=== PATIENT | male | born 1950 | race Caucasian/White ===

== ENCOUNTER 2017-08-21 10:45 | Day surgery (SDC) | payer OTHER, SELFPAY ==
[2017-08-21] VITALS (10 sets, daily range): BP systolic 101–151; BP diastolic 64–80; PULSE 47–54; RESP 11–17; TEMP 36.1–36.6; O2SAT 95–98; BMI 20.2
[2017-08-21] MEDS: SODIUM CHLORIDE 0.9% 1,000 ML 200 ML IV (11:21)
--- NOTE | 2017-08-21 11:40 | PM.HP.1 ---
History of Present Illness Date Patient Seen: 08/21/17 Time Patient Seen: 11:40 Chief complaint: [id number] SCREENING COLONOSCOPY Narrative: Very pleasant gentleman here for screening colonoscopy. He denies any problems or symptoms related to function of his GI tract reports that he needs colonoscopy as per the health maintenance program. His last colonoscopy was 2016 was Patient History Family & Social History Family History: Reviewed 08/21/17 by Adriana Wright MD Social History: household members none Meds Home Medications Medication Instructions Recorded Confirmed Type fluticasone 1 spray INTRANASAL Q DAY #16 gm 06/10/16 Rx pregabalin [Lyrica] 300 mg PO HS #90 cap 04/08/17 Rx aspirin #0 05/15/17 History evolocumab [Repatha Syringe] 140 mg SUB-Q Q2W 08/21/17 08/21/17 History Allergies Allergy/AdvReac Type Severity Reaction Status Date / Time Penicillins Allergy Unknown Rash Verified 08/21/17 11:18 oxycodone AdvReac Unknown INTOLERANCE Verified 08/21/17 11:18 TO PERCOCET Review of Systems Review of Systems All systems reviewed & are unremarkable except as noted in HPI and below Exam Vital Signs (past 8 hours): Vital Signs - 8 hr 08/21/17 11:12 Temperature 97.9 F Pulse Rate 54 L Respiratory Rate 16 Blood Pressure 151/80 H Pulse Oximetry 97 Pulse Oximetry 97 Oxygen Delivery Method Room Air Narrative Exam Narrative: Very pleasant well nourished, well developed gentleman in no obvious distress Lungs: Clear bilaterally Heart: Regular rate and rhythm, bradycardia Abdomen: Soft, scaphoid, active bowel sounds Extremities: Warm and well perfused, no edema Assessment & Plan Plan: Assessment/Plan Narrative: Very very pleasant and healthy gentleman here for screening colonoscopy we have reviewed the risks and benefits of the procedure the patient has elected to continue with the planned intervention.
--- NOTE | 2017-08-21 11:44 | P.HP_ITS ---
History of Present Illness Date Patient Seen: 08/21/17 Time Patient Seen: 11:40 Chief complaint: [id number] SCREENING COLONOSCOPY Narrative: Very pleasant gentleman here for screening colonoscopy. He denies any problems or symptoms related to function of his GI tract reports that he needs colonoscopy as per the health maintenance program. His last colonoscopy was 2016 was Patient History Family & Social History Family History: Reviewed 08/21/17 by Adriana Wright MD Social History: household members none Meds Home Medications Medication Instructions Recorded Confirmed Type fluticasone 1 spray INTRANASAL Q DAY #16 gm 06/10/16 Rx pregabalin [Lyrica] 300 mg PO HS #90 cap 04/08/17 Rx aspirin #0 05/15/17 History evolocumab [Repatha Syringe] 140 mg SUB-Q Q2W 08/21/17 08/21/17 History Allergies Allergy/AdvReac Type Severity Reaction Status Date / Time Penicillins Allergy Unknown Rash Verified 08/21/17 11:18 oxycodone AdvReac Unknown INTOLERANCE Verified 08/21/17 11:18 TO PERCOCET Review of Systems Review of Systems All systems reviewed & are unremarkable except as noted in HPI and below Exam Vital Signs (past 8 hours): Vital Signs - 8 hr 3 08/21/17 11:12 Temperature 97.9 F Pulse Rate 54 L Respiratory Rate 16 Blood Pressure 151/80 H Pulse Oximetry 97 Pulse Oximetry 97 Oxygen Delivery Method Room Air Narrative Exam Narrative: Very pleasant well nourished, well developed gentleman in no obvious distress Lungs: Clear bilaterally Heart: Regular rate and rhythm, bradycardia Abdomen: Soft, scaphoid, active bowel sounds Extremities: Warm and well perfused, no edema Assessment & Plan Plan: Assessment/Plan Narrative: Very very pleasant and healthy gentleman here for screening colonoscopy we have reviewed the risks and benefits of the procedure the patient has elected to continue with the planned intervention.
[2017-08-21] MEDS: MIDAZOLAM 5 MG/5 ML VIAL IV (11:58)
[2017-08-21] MEDS: fentaNYL 250 MCG/5 ML INJ IV (11:58)
--- NOTE | 2017-08-21 12:07 | PM.OP.1 ---
Operative Date/Time/Diagnoses - Date of procedure: 08/21/17 Time of procedure: 12:07 Pre-op diagnosis: Screening Post-op diagnosis: same Procedure & Clinicians Procedure: Colonoscopy to the cecum Same procedure as scheduled: Yes Indications: Last colonoscopy 10 years ago Surgeon: Adriana Wright Click Yes if Unassisted: Yes Anesthesia Type: Sedation (Versed 5 mg; fentanyl 150 mcg) Operative Notes Findings: 1. Excellent prep 2. No polyps or mass lesions 3. No AV malformations 4. Very very minimal diverticulosis limited to the sigmoid region 5. Who grade 1 internal hemorrhoids with no evidence of prolapse Closure Type: not applicable Specimen(s): none sent Procedure in detail: After obtaining informed consent, the patient was brought to the GI suite and placed in the left lateral decubitus position on the examination table. After placement of appropriate monitors, the patient was given incremental doses of Versed and Fentanyl until an appropriate level of sedation was achieved. A time out was held per SCOAP protocol. A digital rectal examination was performed and did not reveal any masses or obstructing lesions. The colonoscope was gently passed into the patient's anus and the entire colon navigated to the level of the cecum with minimal difficulty. Once in the cecum, the scope was withdrawn being sure to go before and beyond all mucosal folds and prominences and get an excellent examination. The findings are noted above. At the level of the rectal vault, the scope was retroflexed and the internal anal canal was examined. The scope was straightened and air aspirated from the colon. The instrument was removed from the patient's body and the procedure was concluded. The patient was allowed to awaken from sedation without difficulty and taken to the post-anesthesia care unit in good condition. Total sedation time 17 min Total withdrawal time 9 min Complications: none Condition: stable Disposition: PACU Plan for aftercare: 1. Discharge to home 2. Plan for next colonoscopy in 10 years or as clinically indicated
== END 2017-08-21 13:22 | disposition home or self-care (01) ==
PROVIDERS: PCP Internal Medicine; Visit Provider Surgery
PROC: 0DJD8ZZ Inspection of Lower Intestinal Tract, Via Natural or Artificial Opening Endoscopic (ICD-10-PCS; CPT 45378; principal; 2017-08-21 11:45)
DX: Z12.11 Encounter for screening for malignant neoplasm of colon (principal); K57.30 Diverticulosis of large intestine without perforation or abscess without bleeding; K64.0 First degree hemorrhoids
CPT/HCPCS: 45378; 99152; J2250; J3010

== ENCOUNTER → 2017-08-26 08:13 | Outpatient (CLI) | payer OTHER, SELFPAY ==
--- NOTE | 2017-08-26 | DI.ECHO.S_ITS ---
[facility] + [facility] +---------+ : : [address] : : : : [place], : : : : [place] [id number] : : : : Phone: [phone] Echocardiogram Report + + :Name: JESSICA NICOLAS Study Date: 08/26/2017 Height: 71 in : :[facility] Weight: 150 lb: : Gender: Male BSA: 1.9 m2 : :: 1950 Age: 67 yrs : : Performed By: [facility] : :Referring: ENMANUEL HOFFMAN : + + Interpretation Summary Procedure: A two-dimensional transthoracic echocardiogram with color flow and Doppler was performed. The study quality was technically good. Comparison is made with the echocardiogram of 04/04/15. The patient was in normal sinus rhythm during the exam. The patient had occasional PACs during the exam. Left Ventricle: The left ventricle is normal in size. Left ventricular wall thickness is at the upper limits of normal. The ejection fraction is estimated to be 60-65%. There are no focal wall motion abnormalities. Right Ventricle: The right ventricle is mildly dilated. The right ventricular systolic function is normal. Atria: Both atria are moderately dilated. The interatrial septum is intact with no evidence for an atrial septal defect. Mitral Valve: There is mild to moderate mitral regurgitation. Aortic Valve: The aortic valve is normal in structure and function. No aortic regurgitation is present. Tricuspid Valve: The tricuspid valve is normal in structure and function. Pulmonic Valve: The pulmonic valve is normal in structure and function. There is trace pulmonic regurgitation. Great Vessels: The aortic root is normal size. The dimensions of the ascending aorta are normal. The pulmonary artery is normal size. Pericardium/ Pleura There is no pericardial effusion. There is no pleural effusion. MMode/2D Measurements & Calculations LVIDd: 4.3 cm Ao root diam: 3.8 cm LVIDs: 2.9 cm Aortic Jxn: 3.1 cm IVSd: 1.1 cm asc Aorta Diam: 4.3 cm LVPWd: 0.92 cm Ao Arch Diam (Prox Trans): 2.6 cm LV bo. diameter/BSA (cm/m^2): 2.3 LV sys. diameter/BSA (cm/m^2): 1.5 FS: 33.7 % EPSS: 0.24 cm LA dimension: 3.6 cm RA long axis: 5.8 cm LA A2 area: 27.9 cm2 RA area: 24.8 cm2 LA A4 area: 20.3 cm2 RA vol: 89.7 ml LA length (vol): 5.6 cm RA : 48.1 ml/m2 LA vol: 86.0 ml LA vol index: 46.1 ml/m2 RVD1 (basal): 4.9 cm IVC diam: 1.8 cm RVD2 (mid): 4.0 cm Doppler Measurements & Calculations Ao V2 max: 120.9 cm/sec MV E max chris: 51.5 cm/sec Ao V2 mean: 92.5 cm/sec MV A max chris: 39.1 cm/sec Ao V2 VTI: 32.8 cm MV E/A: 1.3 Ao max P.8 mmHg Med Peak E' Chris: 4.7 cm/sec Ao mean P.7 mmHg E/E' med: 10.8 MV dec time: 0.28 sec TR max chris: 222.9 cm/sec TR max P.9 mmHg PA V2 max: 73.2 cm/sec Pulm A Revs Chris: 19.5 cm/sec PA V2 mean: 50.5 cm/sec PA mean P.1 mmHg PA pr(Accel): 19.1 mmHg PA Accel Time: 0.13 sec Reading Physician:SADA
== END ==
PROVIDERS: PCP Internal Medicine; Visit Provider Internal Medicine Cardiovascular Disease
DX: I77.819 Aortic ectasia, unspecified site (principal)
CPT/HCPCS: 93306

== ENCOUNTER → 2017-12-15 13:00 | Outpatient (CLI) | payer OTHER, SELFPAY | PROVIDERS: PCP Internal Medicine | DX: Z23 Encounter for immunization (principal) | CPT/HCPCS: 90471; 90662 ==

== ENCOUNTER → 2018-04-13 11:22 | Outpatient (CLI) | payer OTHER, SELFPAY ==
[2018-04-13 12:30] LABS: Alanine Aminotransferase 24 IU/L (21-72); Albumin 4.3 g/dL (3.5-5.0); Albumin Globulin Ratio 1.4 (1.0-2.8); Alkaline Phosphatase 68 U/L (38-126); Aspartate Aminotransferase 33 IU/L (17-59); Blood Urea Nitrogen 22 mg/dL (9-20); Calcium 9.3 mg/dL (8.4-10.2); Carbon Dioxide 27 mmol/L (22-32); Chloride 102 mmol/L (98-107); Cholesterol 153 mg/dL (140-199); Estimated Glomerular Filt Rate > 60.0 mL/min (>60); Globulin 3.1 g/dL (1.7-4.1); Glucose 92 mg/dL (80-110); HDL Cholesterol 58 mg/dL (40-60); HEMOLYSIS 17 (0-50); LDL Cholesterol Calculated 71 mg/dL (<100); Potassium 4.2 mmol/L (3.4-5.1); Sodium 139 mmol/L (137-145); Total Protein 7.4 g/dL (6.3-8.2); Triglycerides 122 mg/dL (35-150)
[2018-04-13 12:38] LABS: Add Manual Diff / Slide Review NO; Basophils Absolute Auto 0 /uL (0-100); Basophils Percent Auto 0.8 % (0-2); Eosinophils Absolute Auto 100 /uL (0-450); Eosinophils Percent Auto 0.9 % (2-4); Hematocrit 46.5 % (41-53); Hemoglobin 15.7 g/dL (13.5-17.5); Lymphocytes Absolute Auto 1900 /uL (1100-4500); Lymphocytes Percent Auto 29.2 % (25-40); Mean Corpuscular HGB Conc 33.7 % (30-36); Mean Corpuscular Hemoglobin 32.1 PG (26-34); Mean Corpuscular Volume 95.3 fL (80-100); Monocytes Absolute Auto 500 /uL (0-900); Monocytes Percent Auto 8.1 % (3-14); Neutrophils Absolute Auto 4000 /uL (1500-7000); Platelet Count 202 X10^3/uL (150-400); Red Blood Cell Count 4.88 X10^6/uL (4.5-5.9); Red Cell Distribution Width 13.6 % (11.6-14.8); White Blood Cell Count 6.6 X10^3/uL (4.5-11.0)
[2018-04-13 12:58] LABS: Prostate Specific Antigen Scrn 0.744 ng/mL (0.1-4.0); TSH w/ Reflex to FT4 1.41 uIU/mL (0.47-4.68)
== END ==
PROVIDERS: PCP Internal Medicine; Visit Provider Internal Medicine
DX: I45.89 Other specified conduction disorders (principal); I71.2 Thoracic aortic aneurysm, without rupture; R06.00 Dyspnea, unspecified; Z12.5 Encounter for screening for malignant neoplasm of prostate; Z13.6 Encounter for screening for cardiovascular disorders
CPT/HCPCS: 36415; 80053; 80061; 84443; 85025; G0103

== ENCOUNTER → 2018-12-29 12:45 | Outpatient (CLI) | payer OTHER, SELFPAY | PROVIDERS: PCP Internal Medicine | DX: Z23 Encounter for immunization (principal) | CPT/HCPCS: 90471; 90662 ==

== ENCOUNTER → 2019-04-26 08:42 | Outpatient (CLI) | payer OTHER, SELFPAY ==
[2019-04-26 09:36] LABS: Influenza A - CEPHEID Flu A POSITIVE (NEGATIVE); Influenza B - CEPHEID Flu B NEGATIVE (NEGATIVE)
== END ==
PROVIDERS: PCP Internal Medicine; Visit Provider Nurse Practitioner
DX: R05 Cough (principal); R50.9 Fever, unspecified; Z20.828 Contact with and (suspected) exposure to other viral communicable diseases
CPT/HCPCS: 87502

== ENCOUNTER → 2019-06-14 09:52 | Outpatient (CLI) | payer OTHER, SELFPAY ==
--- NOTE | 2019-06-14 09:55 | DI.RAD.S_ITS ---
PROCEDURE: XR HAND RT MIN 3V INDICATIONS: Swelling in right hand. TECHNIQUE: 3 views of the hand(s) acquired. COMPARISON: None. FINDINGS: Bones: No fractures but there is a finding of strongly suspected volar dislocation of the base of the second proximal phalanx from the second metacarpal head, as potential etiology for the swelling noted. Carpal bones are normally aligned. No suspicious bony lesions. Soft tissues: No suspicious soft tissue calcifications. 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 Dictated by: Harris Warner M.D. on 06/14/2019 at 10:22 Approved by: Harris Warner M.D. on 06/14/2019 at 10:25
== END ==
PROVIDERS: PCP Internal Medicine; Referring Provider Internal Medicine; Visit Provider Internal Medicine
DX: S69.91XA Unspecified injury of right wrist, hand and finger(s), initial encounter (principal); M79.89 Other specified soft tissue disorders; X58.XXXA Exposure to other specified factors, initial encounter
CPT/HCPCS: 73130

== ENCOUNTER → 2019-09-06 08:04 | Outpatient (CLI) | payer OTHER, SELFPAY ==
[2019-09-06 09:46] LABS: Add Manual Diff / Slide Review NO; Basophils Absolute Auto 0 /uL (0-100); Basophils Percent Auto 0.7 % (0-2); Eosinophils Absolute Auto 100 /uL (0-450); Eosinophils Percent Auto 1.6 % (2-4); Hematocrit 42.9 % (41-53); Hemoglobin 14.6 g/dL (13.5-17.5); Lymphocytes Absolute Auto 1700 /uL (1100-4500); Mean Corpuscular Hemoglobin 32.2 PG (26-34); Mean Corpuscular Volume 94.7 fL (80-100); Monocytes Absolute Auto 500 /uL (0-900); Monocytes Percent Auto 9.2 % (3-14); Neutrophils Absolute Auto 3400 /uL (1500-7000); Neutrophils Percent Auto 58.5 % (50-75); Platelet Count 176 X10^3/uL (150-400); Red Blood Cell Count 4.52 X10^6/uL (4.5-5.9); Red Cell Distribution Width 13.4 % (11.6-14.8); White Blood Cell Count 5.8 X10^3/uL (4.5-11.0)
[2019-09-06 10:30] LABS: Alanine Aminotransferase 14 IU/L (<50); Albumin 3.6 g/dL (3.5-5.0); Albumin Globulin Ratio 1.3 (1.0-2.8); Alkaline Phosphatase 62 U/L (38-126); Aspartate Aminotransferase 29 IU/L (17-59); BUN Creatinine Ratio 23.4 (6-22); Bilirubin Total 0.8 mg/dL (0.2-1.3); Blood Urea Nitrogen 22 mg/dL (9-20); Calcium 9.4 mg/dL (8.4-10.2); Carbon Dioxide 23 mmol/L (22-32); Chloride 108 mmol/L (98-107); Cholesterol 166 mg/dL (140-199); Estimated Glomerular Filt Rate > 60.0 mL/min (>60); Globulin 2.8 g/dL (1.7-4.1); Glucose 90 mg/dL (80-110); HDL Cholesterol 54 mg/dL (40-60); HEMOLYSIS < 15 (0-50); LDL Cholesterol Calculated 92 mg/dL (<100); Potassium 4.4 mmol/L (3.4-5.1); Sodium 138 mmol/L (137-145); Total Protein 6.4 g/dL (6.3-8.2); Triglycerides 100 mg/dL (35-150)
[2019-09-06 10:48] LABS: Prostate Specific Antigen Scrn 0.612 ng/mL (0.1-4.0)
== END ==
PROVIDERS: PCP Internal Medicine; Referring Provider Internal Medicine; Visit Provider Internal Medicine
DX: Z13.1 Encounter for screening for diabetes mellitus (principal); Z13.6 Encounter for screening for cardiovascular disorders; Z12.5 Encounter for screening for malignant neoplasm of prostate; E78.5 Hyperlipidemia, unspecified; F98.8 Other specified behavioral and emotional disorders with onset usually occurring in childhood and adolescence
CPT/HCPCS: 36415; 80053; 80061; 85025; G0103

== ENCOUNTER → 2019-10-06 06:55 | Outpatient (CLI) | payer OTHER, SELFPAY ==
--- NOTE | 2019-10-06 | DI.ECHO.S_ITS ---
[facility]---------+ [facility] +---------+ : : [address] [place] [address] : : : : [id number] : : : : Phone: [phone]+ Echocardiogram Report + + :Name: JESSICA NICOLAS Study Date: 10/06/2019 Height: 71 in : :[facility] Weight: 145 lb : : Gender: Male BSA: 1.8 m2 : :: 1950 Age: 69 yrs BP: 118/68 mmHg: :Reason For Study: ASCENDING AORTA DILITATION : :Ordering Physician: JAIRO, : :HUY Performed By: Luzmaria Haines : :Referring: HUY GILL : + + Interpretation Summary The left ventricle is normal in size and wall thickness. The left ventricular ejection fraction is normal. There are no focal wall motion abnormalities. The right ventricle is normal in size and function. A highly mobile, filamentous echodensity is noted, attached to the ventricular aspect of the anterior mitral valve leaflet. 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 The anterior leaflet motion is preserved and only trivial mitral regurgitation is present. Review of prior echos shows this was present on the last echo as well. The ascending aorta is mildly enlarged.There has been no significant change since the previous study. Overall there is no significant change compared to the prior echocardiogram. Procedure: A two-dimensional transthoracic echocardiogram with color flow and Doppler was performed. The study quality was technically adequate. There is no prior echocardiogram noted for this patient. The patient was in sinus bradycardia with heart rates between 47-50 bpm during the exam. The patient had occasional PACs during the exam. Left Ventricle: The left ventricle is normal in size and wall thickness. The ejection fraction is estimated to be 60-65%. The left ventricular ejection fraction is normal. There are no focal wall motion abnormalities. Diastolic function could not be accurately assessed due to contradictory data. Right Ventricle: The right ventricle is normal in size and function. Atria: The left atrium is mildly dilated. Right atrial size is normal. There is no Doppler evidence for an interatrial shunt. Mitral Valve: The mitral valve leaflets appear to open well. A highly mobile, filamentous echodensity is noted, attached to the ventricular aspect of the anterior mitral valve leaflet. 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 The anterior leaflet motion is preserved and only trivial mitral regurgitation is present. Review of prior echos shows this was present on the last echo as well. There is trace mitral regurgitation. Aortic Valve: The aortic valve is trileaflet. The aortic valve opens well. There is no aortic valve stenosis. No aortic regurgitation is present. Tricuspid Valve: The tricuspid valve is normal in structure and function. The right ventricular systolic pressure is estimated to be at least 19 mmHg based on an estimated right atrial pressure of 3 mm Hg. There is mild tricuspid regurgitation. Pulmonic Valve: The pulmonic valve leaflets are thin and pliable; valve motion is normal. There is mild pulmonic regurgitation. Great Vessels: The aortic root is borderline dilated. The ascending aorta is mildly enlarged. There has been no significant change since the previous study. The IVC is of normal diameter and collapses greater than 50% with a sniff. This suggests a low right atrial pressure of 3 mm Hg. Pericardium/ Pleura There is no pericardial effusion. There is no pleural effusion. MMode/2D Measurements & Calculations LVIDd: 4.9 cm LVOT diam: 2.1 cm LVIDs: 3.1 cm Ao root diam: 3.8 cm FS: 37.1 % asc Aorta Diam: 4.1 cm EPSS: 0.27 cm Ao Arch Diam (Prox Trans): 2.5 cm IVSd: 0.99 cm LVPWd: 0.87 cm LV bo. diameter/BSA (cm/m^2): 2.6 LV sys. diameter/BSA (cm/m^2): 1.7 LA A2 area: 24.3 cm2 RA long axis: 5.9 cm LA A4 area: 20.0 cm2 RA area: 18.0 cm2 LA length (vol): 5.5 cm RA vol: 46.6 ml LA vol: 74.2 ml RA : 25.4 ml/m2 LA vol index: 40.3 ml/m2 IVC diam: 1.3 cm RVD1 (basal): 3.8 cm TAPSE: 2.2 cm Doppler Measurements & Calculations Ao V2 max: 117.2 cm/sec LVOT Max Chris: 102.6 cm/sec Ao V2 mean: 79.5 cm/sec LV V1 max P.2 mmHg Ao max P.5 mmHg LV V1 VTI: 22.9 cm Ao mean P.7 mmHg GELA(I,D): 3.0 cm2 Ao V2 VTI: 26.3 cm GELA(V,D): 3.0 cm2 sev ratio: 0.87 GELA indexed to BSA (cm^2/m^2): 1.6 MV E max chris: 57.6 cm/sec TR max chris: 220.7 cm/sec MV A max chris: 39.4 cm/sec TR max P.9 mmHg MV E/A: 1.5 PA V2 max: 71.4 cm/sec Med Peak E' Chris: 5.1 cm/sec PA V2 mean: 45.3 cm/sec E/E' med: 11.3 PA mean P.98 mmHg Lat Peak E' Chris: 7.2 cm/sec PA pr(Accel): 17.3 mmHg E/E' lat: 8.0 E/e' average: 9.7 MV dec time: 0.25 sec SV(LVOT): 77.7 ml Electronically signed by: Huy Gill M.D. on Reading Physician:10/06/2019 10:08 AM
== END ==
PROVIDERS: PCP Internal Medicine; Referring Provider Hospitalist; Visit Provider Hospitalist
DX: I07.1 Rheumatic tricuspid insufficiency (principal); I37.1 Nonrheumatic pulmonary valve insufficiency; I77.810 Thoracic aortic ectasia
CPT/HCPCS: 93306

== ENCOUNTER → 2019-12-08 00:06 | Outpatient (CLI) | payer OTHER, SELFPAY | PROVIDERS: PCP Internal Medicine; Referring Provider Internal Medicine; Visit Provider Internal Medicine | DX: Z23 Encounter for immunization (principal) | CPT/HCPCS: 90471; 90662 ==

== ENCOUNTER → 2020-03-24 12:58 | Outpatient (CLI) | payer MEDICARE, SELFPAY ==
[2020-03-24] MEDS: COVID-19 VACC(MODERNA-1)/PF 100 MCG/0.5 ML VIAL IM (13:07)
== END ==
PROVIDERS: PCP Internal Medicine; Visit Provider Internal Medicine
DX: Z23 Encounter for immunization (principal)
CPT/HCPCS: 0011A; 91301

== ENCOUNTER → 2020-04-21 12:52 | Outpatient (CLI) | payer MEDICARE, OTHER, SELFPAY ==
[2020-04-21] MEDS: COVID-19 VACC #2, MRNA(MOD) 100 MCG/0.5 ML VIAL IM (13:00)
== END ==
PROVIDERS: PCP Internal Medicine; Visit Provider Internal Medicine
DX: Z23 Encounter for immunization (principal)
CPT/HCPCS: 0012A; 91301

== ENCOUNTER → 2020-05-09 16:56 | Outpatient (CLI) | payer MEDICARE, OTHER, SELFPAY ==
[2020-05-09 19:01] LABS: Alanine Aminotransferase 12 IU/L (<50); Albumin 4.2 g/dL (3.5-5.0); Albumin Globulin Ratio 1.4 (1.0-2.8); Alkaline Phosphatase 64 U/L (38-126); Aspartate Aminotransferase 29 IU/L (17-59); BUN Creatinine Ratio 21.2 (6-22); Bilirubin Total 0.6 mg/dL (0.2-1.3); Blood Urea Nitrogen 22 mg/dL (9-20); Calcium 9.3 mg/dL (8.4-10.2); Carbon Dioxide 29 mmol/L (22-32); Chloride 104 mmol/L (98-107); Estimated Glomerular Filt Rate > 60.0 mL/min (>60); Globulin 2.9 g/dL (1.7-4.1); Glucose 84 mg/dL (80-110); HEMOLYSIS < 15 (0-50); Potassium 4.3 mmol/L (3.4-5.1); Sodium 136 mmol/L (137-145); Total Protein 7.1 g/dL (6.3-8.2)
[2020-05-09 19:32] LABS: TSH w/ Reflex to FT4 2.16 uIU/mL (0.47-4.68)
== END ==
PROVIDERS: PCP Internal Medicine; Referring Provider Internal Medicine; Visit Provider Internal Medicine
DX: I10 Essential (primary) hypertension (principal)
CPT/HCPCS: 36415; 80053; 84443

== ENCOUNTER → 2020-05-17 10:40 | Outpatient (CLI) | payer MEDICARE, OTHER, SELFPAY ==
--- NOTE | 2020-05-17 10:42 | DI.RAD.S_ITS ---
PROCEDURE: XR FOOT LT MIN 3V INDICATIONS: Left foot 3rd metatarsal pain TECHNIQUE: 3 views of the foot were acquired. COMPARISON: [facility], CR, FOOT 3V LEFT, 07/07/2014, 17:19. FINDINGS: Bones: There is mild pes planus. Calcaneal pitch angle measures 16 degrees. Hammertoe deformity involving 2nd toe is seen. Mild osteoarthritic changes at 1st MTP joint and interphalangeal joints are seen. No fracture or dislocation. No suspicious bony lesion. Soft tissues: No tibiotalar joint effusion. Achilles tendon appears normal. IMPRESSION: Mild pes planus. Mild 2nd toe hammertoe deformity. 1st MTP joint osteoarthritis. Old healed mid 3rd metatarsal shaft fracture is again seen. No acute fracture or dislocation. Dictated by: Codey Pisano M.D. on 05/17/2020 at 13:28 Approved by: Codey Pisano M.D. on 05/17/2020 at 13:34
== END ==
PROVIDERS: PCP Internal Medicine; Referring Provider Internal Medicine; Visit Provider Internal Medicine
DX: M79.672 Pain in left foot (principal); M20.42 Other hammer toe(s) (acquired), left foot; M19.072 Primary osteoarthritis, left ankle and foot
CPT/HCPCS: 73630

== ENCOUNTER → 2020-05-24 11:04 | Outpatient (CLI) | payer MEDICARE, OTHER, SELFPAY ==
[2020-05-24 12:24] LABS: Cholesterol 203 mg/dL (140-199); HDL Cholesterol 56 mg/dL (40-60); LDL Cholesterol Calculated 116 mg/dL (<100); Triglycerides 154 mg/dL (35-150)
== END ==
PROVIDERS: PCP Internal Medicine; Referring Provider Internal Medicine Cardiovascular Disease; Visit Provider Internal Medicine Cardiovascular Disease
DX: I25.10 Atherosclerotic heart disease of native coronary artery without angina pectoris (principal)
CPT/HCPCS: 36415; 80061

== ENCOUNTER → 2020-09-28 08:19 | Outpatient (CLI) | payer MEDICARE, OTHER, SELFPAY ==
[2020-09-28 09:12] LABS: Alanine Aminotransferase 13 IU/L (<50); Albumin 3.6 g/dL (3.5-5.0); Albumin Globulin Ratio 1.2 (1.0-2.8); Alkaline Phosphatase 66 U/L (38-126); Aspartate Aminotransferase 30 IU/L (17-59); BUN Creatinine Ratio 18.4 (6-22); Bilirubin Total 0.6 mg/dL (0.2-1.3); Blood Urea Nitrogen 19 mg/dL (9-20); Calcium 9.2 mg/dL (8.4-10.2); Carbon Dioxide 26 mmol/L (22-32); Chloride 108 mmol/L (98-107); Cholesterol 138 mg/dL (140-199); Estimated Glomerular Filt Rate > 60.0 mL/min (>60); Globulin 2.9 g/dL (1.7-4.1); Glucose 98 mg/dL (80-110); HDL Cholesterol 60 mg/dL (40-60); HEMOLYSIS < 15 (0-50); LDL Cholesterol Calculated 64 mg/dL (<100); Potassium 4.7 mmol/L (3.4-5.1); Sodium 139 mmol/L (137-145); Total Protein 6.5 g/dL (6.3-8.2); Triglycerides 71 mg/dL (35-150)
[2020-09-28 09:42] LABS: Prostate Specific Antigen Scrn 0.621 ng/mL (0.1-4.0)
== END ==
PROVIDERS: PCP Internal Medicine; Referring Provider Internal Medicine; Visit Provider Internal Medicine
DX: I10 Essential (primary) hypertension (principal); Z12.5 Encounter for screening for malignant neoplasm of prostate; E78.5 Hyperlipidemia, unspecified; I25.10 Atherosclerotic heart disease of native coronary artery without angina pectoris
CPT/HCPCS: 36415; 80053; 80061; G0103

== ENCOUNTER → 2021-09-11 12:05 | Outpatient (CLI) | payer MEDICARE, OTHER, SELFPAY ==
--- NOTE | 2021-09-11 12:07 | DI.MRI.S_ITS ---
PROCEDURE: MR THORACIC SPINE WO CON INDICATIONS: thoracic back pain TECHNIQUE: Noncontrast sagittal T1 spine echo and T2 fast spin echo, sagittal STIR, and T2 fast spin echo through the thoracic spine. COMPARISON: [facility], , T-SPINE WITHOUT CONTRAST, 07/26/2015, 18:36. FINDINGS: Image quality: Excellent. Alignment and Curvature: Dextro thoracic curvature. Trace anterolisthesis of T1 on T2. Bone Marrow: Marrow is of normal overall signal. Again noted is a probable T9 hemangioma. No acute vertebral body compression fractures. Spinal Cord: Visualized spinal cord is normal in size and signal. Paraspinous Soft Tissues: No paravertebral masses. Miscellaneous: On axial images, central canal and foramina appear widely patent at all scanned levels. T1-T2: Mild left foraminal disc bulge without significant foraminal stenosis. T2-T3: Mild left foraminal disc bulge without significant foraminal stenosis. IMPRESSION: Mild scoliotic curvature. No canal stenosis or foraminal stenosis. Dictated by: Cr Barcenas M.D. on 09/11/2021 at 13:52 Approved by: Cr Barcenas M.D. on 09/11/2021 at 14:34
--- NOTE | 2021-09-11 12:07 | DI.RAD.S_ITS ---
PROCEDURE: XR CHEST 2V INDICATIONS: Cough TECHNIQUE: 2 views of the chest were acquired. COMPARISON: [facility], , CHEST 2 VIEW, 05/26/2017, 14:31. FINDINGS: Surgical changes and devices: None. Lungs and pleura: Lungs are clear. No pleural effusions or pneumothorax. Right lung calcified granuloma is stable. Mediastinum: Mediastinal contours are normal. Heart size is normal. Bones and chest wall: S shaped thoracolumbar spine scoliosis is stable. No suspicious bony abnormalities. Soft tissues appear unremarkable. IMPRESSION: No acute cardiopulmonary disease process. Dictated by: Angela Arambula MD, PhD on 09/11/2021 at 16:42 Approved by: Angela Arambula MD, PhD on 09/11/2021 at 16:42
== END ==
PROVIDERS: PCP Internal Medicine; Referring Provider Internal Medicine; Visit Provider Internal Medicine
DX: M54.6 Pain in thoracic spine (principal); R05.9 Cough, unspecified; M41.84 Other forms of scoliosis, thoracic region
CPT/HCPCS: 71046; 72146

== ENCOUNTER → 2021-10-01 08:50 | Outpatient (CLI) | payer MEDICARE, OTHER, SELFPAY ==
[2021-10-01 09:37] LABS: Alanine Aminotransferase 14 IU/L (<50); Albumin 3.8 g/dL (3.5-5.0); Albumin Globulin Ratio 1.3 (1.0-2.8); Alkaline Phosphatase 58 U/L (38-126); Aspartate Aminotransferase 27 IU/L (17-59); BUN Creatinine Ratio 20.8 (6-22); Bilirubin Total 1.3 mg/dL (0.2-1.3); Blood Urea Nitrogen 26 mg/dL (9-20); Carbon Dioxide 25 mmol/L (22-32); Chloride 103 mmol/L (98-107); Cholesterol 162 mg/dL (140-199); Estimated Glomerular Filt Rate > 60 mL/min (>60); Globulin 2.9 g/dL (1.7-4.1); Glucose 94 mg/dL (80-110); HDL Cholesterol 57 mg/dL (40-60); HEMOLYSIS < 15 (0-50); LDL Cholesterol Calculated 92 mg/dL (<100); Sodium 135 mmol/L (137-145); Total Protein 6.7 g/dL (6.3-8.2); Triglycerides 66 mg/dL (35-150)
[2021-10-01 10:06] LABS: Prostate Specific Antigen Scrn 1.17 ng/mL (0.1-4.0)
== END ==
PROVIDERS: PCP Internal Medicine; Referring Provider Internal Medicine; Visit Provider Internal Medicine
DX: E78.2 Mixed hyperlipidemia (principal); I10 Essential (primary) hypertension; Z12.5 Encounter for screening for malignant neoplasm of prostate
CPT/HCPCS: 36415; 80053; 80061; G0103

== ENCOUNTER → 2022-04-02 10:03 | Outpatient (CLI) | payer MEDICARE, OTHER, SELFPAY ==
[2022-04-02 11:20] LABS: BUN Creatinine Ratio 16.2 (6-22); Blood Urea Nitrogen 18 mg/dL (9-20); Calcium 8.9 mg/dL (8.4-10.2); Carbon Dioxide 27 mmol/L (22-32); Chloride 103 mmol/L (98-107); Estimated Glomerular Filt Rate > 60 mL/min (>60); Glucose 95 mg/dL (80-110); HEMOLYSIS < 15 (0-50); Potassium 4.5 mmol/L (3.4-5.1); Sodium 137 mmol/L (137-145)
== END ==
PROVIDERS: PCP Internal Medicine; Referring Provider Internal Medicine; Visit Provider Internal Medicine
DX: I10 Essential (primary) hypertension (principal)
CPT/HCPCS: 36415; 80048

== ENCOUNTER → 2022-04-15 14:48 | Outpatient (CLI) | payer MEDICARE, OTHER, SELFPAY ==
--- NOTE | 2022-04-15 14:49 | DI.ECHO.S_ITS ---
[facility]---------+ [facility] +---------+ : : [address] : [place] : : : : [id number] : : : : Phone: [phone] : [phone]+ Echocardiogram Report + + :Name: JESSICA NICOLAS Study Date: 04/15/2022 Height: 71 in : :[facility] ReadingLocation: Weight: 145 lb : : Gender: Male BSA: 1.8 m2 : :: 1950 Age: 72 yrs BP: 126/74 mmHg: :Reason For Study: \Dilated Ascending Aorta : :Ordering Physician: YAYA, : :LEROY Colon Performed By: Luzmaria Clay : :Referring: LEROY JAVIER : + + Interpretation Summary The left ventricle is normal in size and wall thickness. The ejection fraction is estimated to be 55-60%. There is mild mitral regurgitation. There is mild tricuspid regurgitation. The aortic arch is mildly enlarged. This is unchanged compared to the previous study. Procedure: A two-dimensional transthoracic echocardiogram with color flow and Doppler was performed. The study quality was technically good. The patient was in sinus bradycardia with heart rates between 47-53 bpm during the exam. Left Ventricle: The left ventricle is normal in size and wall thickness. The ejection fraction is estimated to be 55-60%. There are no focal wall motion abnormalities. Right Ventricle: The right ventricle is normal in size and function. Atria: The left atrial size is normal. Right atrial size is normal. There is no Doppler evidence for an interatrial shunt. Mitral Valve: The mitral valve leaflets appear to open well. There is mild mitral regurgitation. This is a slight increase compared to the previous study. Aortic Valve: The aortic valve is normal in structure and function. There is trace aortic regurgitation. Tricuspid Valve: The tricuspid valve is normal in structure and function. There is mild tricuspid regurgitation. Pulmonic Valve: The pulmonic valve leaflets are thin and pliable; valve motion is normal. There is a trace or physiologic amount of pulmonic regurgitation. Great Vessels: The aortic arch is mildly enlarged. This is unchanged compared to the previous study. Pericardium/ Pleura There is no pericardial effusion. There is no pleural effusion. MMode/2D Measurements & Calculations LVIDd: 4.0 cm LVOT diam: 2.0 cm LVIDs: 2.7 cm Ao root diam: 3.5 cm FS: 32.5 % asc Aorta Diam: 4.1 cm EPSS: 0.10 cm IVSd: 0.90 cm LVPWd: 0.90 cm LV bo. diameter/BSA (cm/m^2): 2.2 LV sys. diameter/BSA (cm/m^2): 1.5 LA dimension: 3.2 cm RA long axis: 5.7 cm LA A2 area: 16.2 cm2 RA area: 16.0 cm2 LA A4 area: 12.2 cm2 RA vol: 38.0 ml LA length (vol): 4.9 cm RA : 20.6 ml/m2 LA vol: 34.2 ml LA vol index: 18.6 ml/m2 RVD1 (basal): 3.2 cm LVLs ap4: 6.4 cm RVD2 (mid): 3.0 cm LVLd ap2: 8.0 cm RV Mid_phl: 3.0 cm LVLs ap2: 6.8 cm TAPSE_phl: 1.8 cm Doppler Measurements & Calculations Ao V2 max: 115.0 cm/sec LVOT Max Chris: 112.0 cm/sec Ao V2 mean: 73.4 cm/sec LV V1 max P.0 mmHg Ao max P.0 mmHg LV V1 VTI: 24.5 cm Ao mean P.0 mmHg GELA(I,D): 3.4 cm2 Ao V2 VTI: 22.9 cm GELA(V,D): 3.1 cm2 sev ratio: 1.1 GELA indexed to BSA (cm^2/m^2): 1.8 MV E max chris: 53.3 cm/sec TR max chris: 195.5 cm/sec MV A max chris: 69.7 cm/sec TR max P.5 mmHg MV E/A: 0.76 PA V2 max: 90.5 cm/sec Med Peak E' Chris: 4.7 cm/sec PA V2 mean: 61.5 cm/sec E/E' med: 11.2 PA mean P.0 mmHg Lat Peak E' Chris: 6.5 cm/sec E/E' lat: 8.2 E/e' average: 9.7 MV dec time: 0.24 sec MVA(VTI): 3.5 cm2 MV V2 mean: 31.6 cm/sec SV(LVOT): 77.0 ml MV mean P.0 mmHg MV V2 VTI: 22.1 cm AV VR_phl: 0.97 MV P1/2t-pr_phl: 70.0 msec GELA(VTI)/BSA_phl: 1.8 Electronically signed by: Adwoa Jamison on Reading Physician:04/17/2022 12:38 PM
== END ==
PROVIDERS: PCP Internal Medicine; Referring Provider Internal Medicine; Visit Provider Internal Medicine
DX: I71.21 Aneurysm of the ascending aorta, without rupture (principal); I08.1 Rheumatic disorders of both mitral and tricuspid valves; I77.89 Other specified disorders of arteries and arterioles
CPT/HCPCS: 93306

== ENCOUNTER → 2022-06-10 09:04 | Outpatient (CLI) | payer MEDICARE, OTHER, SELFPAY ==
[2022-07-01 11:52] LABS: Percent Free Testosterone 0.95 % (1.50-4.20); Testosterone Free 7.74 ng/dL (5.00-21.00)
== END ==
PROVIDERS: PCP Internal Medicine; Referring Provider Internal Medicine; Visit Provider Internal Medicine
DX: M62.84 Sarcopenia (principal)
CPT/HCPCS: 36415; 84402; 84403

== ENCOUNTER → 2022-07-11 08:50 | Outpatient (CLI) | payer MEDICARE, OTHER, SELFPAY ==
--- NOTE | 2022-07-11 08:51 | DI.RAD.S_ITS ---
PROCEDURE: XR THORACIC SPINE 3V INDICATIONS: THORACIC BACK PAIN TECHNIQUE: 3 views of the thoracic spine were acquired. COMPARISON: MR, MR THORACIC SPINE WO CON, 09/11/2021, 12:13. [facility], CR, XR CHEST 2V, 09/11/2021, 12:02. FINDINGS: Bones: No fractures or dislocations. No suspicious bony lesions. 12 pairs of ribs are noted, and appear intact where visualized. Mild S-shaped scoliosis. Mild multilevel disc height loss with endplate sclerosis and mild spurring, most notably involving the cervical spine Soft tissues: No paravertebral stripe thickening. No change in calcified right lower lobe granuloma. IMPRESSION: 1. Mild S-shaped scoliosis and multilevel disc degeneration, most notably involving the cervical spine. Dictated by: Timo RICHARDSON Interpreted: Li Chopra MD on 07/11/2022 at 9:14 Transcribed by: TESSA on 07/11/2022 at 9:17 Approved by: Li Chopra M.D. on 07/11/2022 at 16:56
== END ==
PROVIDERS: PCP Internal Medicine; Referring Provider Anesthesiology; Visit Provider Anesthesiology
DX: M51.34 Other intervertebral disc degeneration, thoracic region (principal); M50.30 Other cervical disc degeneration, unspecified cervical region; M41.9 Scoliosis, unspecified; M54.9 Dorsalgia, unspecified; G89.29 Other chronic pain
CPT/HCPCS: 72072

== ENCOUNTER → 2022-08-17 09:47 | Outpatient (CLI) | payer MEDICARE, OTHER, SELFPAY ==
[2022-08-17 13:05] LABS: Cholesterol 131 mg/dL (140-199); HDL Cholesterol 69 mg/dL (40-60); LDL Cholesterol Calculated 45 mg/dL (<100); Triglycerides 84 mg/dL (35-150)
== END ==
PROVIDERS: PCP Internal Medicine; Referring Provider Internal Medicine Cardiovascular Disease; Visit Provider Internal Medicine Cardiovascular Disease
DX: E78.5 Hyperlipidemia, unspecified (principal)
CPT/HCPCS: 36415; 80061

== ENCOUNTER → 2022-08-21 15:49 | Outpatient (CLI) | payer MEDICARE, OTHER, SELFPAY ==
--- NOTE | 2022-08-21 | DI.US.S_ITS ---
PROCEDURE: US CAROTID DOPPLER BI INDICATIONS: Mixed hyperlipidemia TECHNIQUE: Color and pulse Doppler interrogation was performed of both carotid systems, with image documentation and velocity measurements. COMPARISON: None. FINDINGS: Stenosis calculations are based on SRU (Society of Radiologists in Ultrasound) criteria. Right side: Brachial blood pressure: 97/55 mm Hg. Common carotid artery peak systolic velocity: 108 cm/sec. Internal carotid artery peak systolic velocity: 373 cm/sec. Internal carotid artery end diastolic velocity: 138 cm/sec. External carotid artery peak systolic velocity: 106 cm/sec. ICA/CCA peak systolic ratio: 3.5 . Keller scale imaging description: Moderate calcific plaque at the bifurcation Percent internal carotid artery stenosis: 70% to near occlusion . Vertebral artery: Flow direction is antegrade. Left side: Brachial blood pressure: 92/33 mm Hg. Common carotid artery peak systolic velocity: 117 cm/sec. Internal carotid artery peak systolic velocity: 128 cm/sec. Internal carotid artery end diastolic velocity: 48 cm/sec. External carotid artery peak systolic velocity: 161 cm/sec. ICA/CCA peak systolic ratio: 1.1 . Keller scale imaging description: Moderate calcific plaque at the bifurcation Percent internal carotid artery stenosis: 50-69% . Vertebral artery: Flow direction is antegrade. IMPRESSION: 1. 70% stenosis to near occlusion of right internal carotid artery. 2. 50-69% left internal carotid artery stenosis. 3. Antegrade vertebral artery flow bilaterally. Dictated by: Leah Erwin M.D. on 08/22/2022 at 10:29 Approved by: Leah Erwin M.D. on 08/22/2022 at 10:31
== END ==
PROVIDERS: PCP Internal Medicine; Referring Provider Nurse Practitioner; Visit Provider Nurse Practitioner
DX: I65.23 Occlusion and stenosis of bilateral carotid arteries (principal); E78.2 Mixed hyperlipidemia
CPT/HCPCS: 93880

== ENCOUNTER → 2022-10-26 09:52 | Outpatient (CLI) | payer MEDICARE, OTHER, SELFPAY ==
--- NOTE | 2022-10-26 09:53 | DI.RAD.S_ITS ---
PROCEDURE: XR CHEST 2V INDICATIONS: Persistent cough x3 months TECHNIQUE: 2 views of the chest were acquired. COMPARISON: [facility], CR, XR CHEST 2V, 09/11/2021, 12:02. FINDINGS: Surgical changes and devices: None. Lungs and pleura: Lungs are clear. No pleural effusions or pneumothorax. Calcified right lower lobe granuloma, stable Mediastinum: Mediastinal contours are normal. Heart size is normal. Bones and chest wall: No suspicious bony abnormalities. Soft tissues appear unremarkable. S shaped thoracolumbar scoliosis IMPRESSION: No acute cardiopulmonary findings Approved by: Alexander Conde M.D. on 10/26/2022 at 11:50
== END ==
PROVIDERS: PCP Internal Medicine; Referring Provider Internal Medicine; Visit Provider Internal Medicine
DX: R05.9 Cough, unspecified (principal)
CPT/HCPCS: 71046

== ENCOUNTER → 2023-02-17 08:07 | Outpatient (CLI) | payer MEDICARE, OTHER, SELFPAY ==
[2023-02-17 09:21] LABS: BUN Creatinine Ratio 18.9 (6-22); Blood Urea Nitrogen 23 mg/dL (9-20); Calcium 9.5 mg/dL (8.4-10.2); Carbon Dioxide 27 mmol/L (22-32); Chloride 106 mmol/L (98-107); Cholesterol 128 mg/dL (140-199); Estimated Glomerular Filt Rate > 60 mL/min (>60); Glucose 96 mg/dL (80-110); HDL Cholesterol 54 mg/dL (40-60); HEMOLYSIS < 15 (0-50); LDL Cholesterol Calculated 62 mg/dL (<100); Potassium 4.6 mmol/L (3.4-5.1); Sodium 137 mmol/L (137-145); Triglycerides 62 mg/dL (35-150)
== END ==
PROVIDERS: PCP Internal Medicine; Referring Provider Nurse Practitioner; Visit Provider Nurse Practitioner
DX: E78.2 Mixed hyperlipidemia (principal); I77.810 Thoracic aortic ectasia
CPT/HCPCS: 36415; 80048; 80061

== ENCOUNTER → 2023-03-24 17:10 | Outpatient (ROUT) | payer MEDICARE, OTHER, SELFPAY ==
[2023-03-24 18:03] LABS: Erythrocyte Sedimentation Rate 10 MM/HR (0-15)
[2023-03-24 18:06] LABS: Add Manual Diff / Slide Review NO; Basophils Absolute Auto 100 /uL (0-100); Basophils Percent Auto 1.1 % (0-2); Eosinophils Absolute Auto 300 /uL (0-450); Eosinophils Percent Auto 3.9 % (2-4); Hematocrit 33.1 % (41-53); Hemoglobin 11.2 g/dL (13.5-17.5); Lymphocytes Absolute Auto 1900 /uL (1100-4500); Lymphocytes Percent Auto 23.1 % (25-40); Mean Corpuscular HGB Conc 33.9 % (30-36); Mean Corpuscular Hemoglobin 31.4 PG (26-34); Mean Corpuscular Volume 92.6 fL (80-100); Monocytes Absolute Auto 800 /uL (0-900); Monocytes Percent Auto 9.8 % (3-14); Neutrophils Absolute Auto 5000 /uL (1500-7000); Neutrophils Percent Auto 62.1 % (50-75); Platelet Count 230 X10^3/uL (150-400); Red Blood Cell Count 3.58 X10^6/uL (4.5-5.9); White Blood Cell Count 8.1 X10^3/uL (4.5-11.0)
[2023-03-24 18:12] LABS: Alanine Aminotransferase 22 IU/L (<50); Estimated Glomerular Filt Rate > 60 mL/min (>60)
== END ==
PROVIDERS: Visit Provider Internal Medicine
DX: A49.8 Other bacterial infections of unspecified site (principal); Z48.812 Encounter for surgical aftercare following surgery on the circulatory system
CPT/HCPCS: 82565; 84460; 85025; 85651

== ENCOUNTER → 2023-04-03 08:05 | Outpatient (CLI) | payer MEDICARE, OTHER, SELFPAY ==
--- NOTE | 2023-04-03 08:06 | DI.RAD.S_ITS ---
PROCEDURE: XR CHEST 2V INDICATIONS: cough TECHNIQUE: 2 views of the chest were acquired. COMPARISON: [facility], CR, XR CHEST 2V, 10/26/2022, 10:08. [facility], CR, XR CHEST 2V, 09/11/2021, 12:02. FINDINGS: Surgical changes and devices: Right PICC line is seen with tip projecting over the SVC Lungs and pleura: 1.3 centimeter benign-appearing calcification projecting over the right lung appears unchanged since prior study in 2021. Lungs are otherwise clear. No pleural effusions or pneumothorax. Mediastinum: Mediastinal contours are normal. Heart size is normal. Bones and chest wall: Severe scoliosis of the thoracolumbar spine partially visualized. Soft tissues appear unremarkable. IMPRESSION: No acute cardiopulmonary abnormality seen Note is made of a PICC line Dictated by: Narinder Fernández M.D. on 04/03/2023 at 15:27 Approved by: Narinder Fernández M.D. on 04/03/2023 at 15:30
== END ==
LOC: RAD 08:06
PROVIDERS: PCP Internal Medicine; Referring Provider Internal Medicine; Visit Provider Internal Medicine
DX: R05.9 Cough, unspecified (principal); Z95.828 Presence of other vascular implants and grafts
CPT/HCPCS: 71046

== ENCOUNTER → 2023-04-21 17:00 | Outpatient (ROUT) | payer MEDICARE, OTHER, SELFPAY ==
[2023-04-21 18:07] LABS: Add Manual Diff / Slide Review NO; Basophils Absolute Auto 100 /uL (0-100); Basophils Percent Auto 1.4 % (0-2); Eosinophils Absolute Auto 400 /uL (0-450); Eosinophils Percent Auto 5.4 % (2-4); Hematocrit 33.6 % (41-53); Hemoglobin 11.5 g/dL (13.5-17.5); Lymphocytes Absolute Auto 1400 /uL (1100-4500); Lymphocytes Percent Auto 18.8 % (25-40); Mean Corpuscular HGB Conc 34.2 % (30-36); Mean Corpuscular Hemoglobin 32.1 PG (26-34); Mean Corpuscular Volume 93.9 fL (80-100); Monocytes Absolute Auto 1000 /uL (0-900); Monocytes Percent Auto 13.1 % (3-14); Neutrophils Absolute Auto 4600 /uL (1500-7000); Neutrophils Percent Auto 61.3 % (50-75); Platelet Count 175 X10^3/uL (150-400); Red Blood Cell Count 3.58 X10^6/uL (4.5-5.9); Red Cell Distribution Width 14.3 % (11.6-14.8); White Blood Cell Count 7.6 X10^3/uL (4.5-11.0)
[2023-04-21 18:13] LABS: Alanine Aminotransferase 18 IU/L (<50); Estimated Glomerular Filt Rate 54 mL/min (>60)
[2023-04-21 18:35] LABS: Erythrocyte Sedimentation Rate 8 MM/HR (0-15)
== END ==
PROVIDERS: Visit Provider Internal Medicine
DX: A49.8 Other bacterial infections of unspecified site (principal); Z48.812 Encounter for surgical aftercare following surgery on the circulatory system
CPT/HCPCS: 82565; 84460; 85025; 85651

== ENCOUNTER → 2023-05-20 10:02 | Outpatient (CLI) | payer MEDICARE, OTHER, SELFPAY ==
--- NOTE | 2023-05-20 10:04 | DI.RAD.S_ITS ---
PROCEDURE: XR CERVICAL SPINE 2V OR 3V INDICATIONS: neck pain TECHNIQUE: 3 view(s) of the cervical spine were acquired. COMPARISON: None. FINDINGS: Bones: No fractures or dislocations to the T1 level. The lateral masses of C1 appear intact on the odontoid view. Exaggerated cervical lordosis. Severe disc height loss at C3-4, C4-5, C5-6, C6-7. Moderate disc height loss at remaining levels. Diffuse facet arthrosis. Soft tissues: No prevertebral soft tissue swelling. IMPRESSION: Severe, multilevel degenerative disc disease and diffuse facet arthrosis. Dictated by: Herman Rain M.D. on 05/20/2023 at 14:54 Approved by: Herman Rain M.D. on 05/20/2023 at 14:55
--- NOTE | 2023-05-20 10:04 | DI.RAD.S_ITS ---
PROCEDURE: XR SHOULDER RT MIN 2V INDICATIONS: shoulder pain TECHNIQUE: 3 views of the shoulder were acquired. COMPARISON: [facility], , SHOULDER MINIMUM 2VIEW RIGHT, 12/01/2014, 13:34. FINDINGS: Bones: No fractures or dislocations. No suspicious bony lesions. Visualized ribs appear intact. Soft tissues: No suspicious soft tissue calcifications. Calcified hilar lymph node. IMPRESSION: No significant degenerative change. Dictated by: Herman Rain M.D. on 05/20/2023 at 11:32 Approved by: Herman Rain M.D. on 05/20/2023 at 11:34
== END ==
LOC: RAD 10:03
PROVIDERS: PCP Internal Medicine; Referring Provider Internal Medicine; Visit Provider Internal Medicine
DX: M50.31 Other cervical disc degeneration, high cervical region (principal); M47.812 Spondylosis without myelopathy or radiculopathy, cervical region; M25.511 Pain in right shoulder
CPT/HCPCS: 72040; 73030

== ENCOUNTER → 2023-06-10 12:50 | Outpatient (CLI) | payer MEDICARE, OTHER, SELFPAY ==
--- NOTE | 2023-06-10 12:53 | DI.MRI.S_ITS ---
PROCEDURE: MR SHOULDER RT WO CON INDICATIONS: Right shoulder weakness TECHNIQUE: Noncontrast oblique coronal T2 fast spin echo with fat saturation, oblique sagittal T1 spin echo and T2 fast spin echo with fat saturation, axial T1 spin echo and T2 fast spin echo with fat saturation through the shoulder. COMPARISON: None. FINDINGS: Image quality: Excellent. Rotator cuff: Low-grade articular and bursal surface partial thickness tear involving distal supraspinatus and infraspinatus at their insertions on the humeral head is seen extending to musculotendinous junction. Distal subscapularis tendinosis is seen. No full-thickness rotator cuff tendon rupture. Sagittal images demonstrate no significant rotator cuff muscle atrophy. Bones and bursae: No bone marrow contusions or fractures. [id number] acromioclavicular joint osteoarthritic changes are seen with joint space narrowing and downward osteophyte formation depressing the musculotendinous junction of supraspinatus. Nonspecific subcortical cystic changes involving greater tuberosity of humeral head near distal rotator cuff tendon insertion is seen. The acromion demonstrates conventional anatomy, without an os acromiale. No pathologic subacromial-subdeltoid or subcoracoid bursal fluid is present. Capsule and soft tissues: There is subtle fraying of superior anterior labrum with T2 hyperintense signal at 12 to 1 o'clock position concerning for subtle superior anterior labral tear. The long head of the biceps tendon demonstrates normal location and morphology. The rotator interval appears normal, without fibrosis. The coracohumeral ligament is normal in thickness. IMPRESSION: 1. Low-grade articular and bursal surface partial thickness tear involving distal supraspinatus and infraspinatus extending to musculotendinous junction. Distal subscapularis tendinosis. No full-thickness rotator cuff tendon rupture. 2. [id number] acromioclavicular joint osteoarthritis. No fracture or dislocation. No significant joint effusion or subacromial subdeltoid bursal fluid. 3. Suggestion of subtle superior anterior labral tear at 12 to 1 o'clock position. Dictated by: Codey Pisano M.D. on 06/10/2023 at 16:52 Approved by: Codey Pisano M.D. on 06/10/2023 at 16:54
== END ==
PROVIDERS: PCP Internal Medicine; Referring Provider Anesthesiology; Visit Provider Anesthesiology
DX: M75.111 Incomplete rotator cuff tear or rupture of right shoulder, not specified as traumatic (principal); M19.011 Primary osteoarthritis, right shoulder; R29.898 Other symptoms and signs involving the musculoskeletal system
CPT/HCPCS: 73221

== ENCOUNTER → 2023-06-13 08:14 | Outpatient (CLI) | payer MEDICARE, OTHER, SELFPAY ==
--- NOTE | 2023-06-13 08:15 | DI.US.S_ITS ---
PROCEDURE: US CAROTID DOPPLER BI INDICATIONS: HX STENOSIS, PSEUDOANEURYSM, TECHNIQUE: Color and pulse Doppler interrogation was performed of both carotid systems, with image documentation and velocity measurements. COMPARISON: [facility], , US CAROTID DOPPLER BI, 08/21/2022, 16:14. FINDINGS: Stenosis calculations are based on SRU (Society of Radiologists in Ultrasound) criteria. Right side: Brachial blood pressure: 122/76 mm Hg. Common carotid artery peak systolic velocity: 88 cm/sec. Internal carotid artery bypass peak systolic velocity: 77 cm/sec. Internal carotid artery end diastolic velocity: 28 cm/sec. External carotid artery peak systolic velocity: 51 cm/sec. ICA/CCA peak systolic ratio: 0.9. Keller scale imaging description: Postsurgical changes are seen from the reverse saphenous vein right ICA bypass graft, which appears patent with patent anastomoses. Atherosclerotic plaque is seen within the common carotid artery. Percent internal carotid artery stenosis: No significant stenosis. Vertebral artery: Flow direction is antegrade. Left side: Brachial blood pressure: 109/70 mm Hg. Common carotid artery peak systolic velocity: 84 cm/sec. Internal carotid artery peak systolic velocity: 95 cm/sec. Internal carotid artery end diastolic velocity: 35 cm/sec. External carotid artery peak systolic velocity: 145 cm/sec. ICA/CCA peak systolic ratio: 1.1. Keller scale imaging description: Moderate atherosclerotic plaque Percent internal carotid artery stenosis: Less than 50 percent. Vertebral artery: Flow direction is antegrade. IMPRESSION: 1. Postsurgical changes from interval reverse saphenous vein bypass graft at the right internal carotid artery. The vein graft appears patent. 2. Left internal carotid artery stenosis measures slightly less on the current study when compared to the ultrasound from 08/21/2022, now estimated at less than 50%. Approved by: Lul Gimenez M.D. on 06/13/2023 at 10:07
== END ==
LOC: US 08:14
PROVIDERS: PCP Internal Medicine; Referring Provider Internal Medicine; Visit Provider Internal Medicine
DX: I65.22 Occlusion and stenosis of left carotid artery (principal)
CPT/HCPCS: 93880

== ENCOUNTER → 2023-09-18 08:24 | Outpatient (CLI) | payer MEDICARE, OTHER, SELFPAY ==
[2023-09-18 11:00] LABS: Add Manual Diff / Slide Review NO; Basophils Absolute Auto 100 /uL (0-100); Basophils Percent Auto 0.8 % (0-2); Eosinophils Absolute Auto 700 /uL (0-450); Eosinophils Percent Auto 8.9 % (2-4); Hematocrit 39.7 % (41-53); Hemoglobin 13.4 g/dL (13.5-17.5); Lymphocytes Absolute Auto 1600 /uL (1100-4500); Lymphocytes Percent Auto 21.4 % (25-40); Mean Corpuscular HGB Conc 33.7 % (30-36); Mean Corpuscular Hemoglobin 32.1 PG (26-34); Mean Corpuscular Volume 95.2 fL (80-100); Monocytes Absolute Auto 600 /uL (0-900); Monocytes Percent Auto 8.6 % (3-14); Neutrophils Absolute Auto 4600 /uL (1500-7000); Neutrophils Percent Auto 60.3 % (50-75); Platelet Count 216 X10^3/uL (150-400); Red Blood Cell Count 4.17 X10^6/uL (4.5-5.9); Red Cell Distribution Width 13.9 % (11.6-14.8); White Blood Cell Count 7.5 X10^3/uL (4.5-11.0)
[2023-09-18 11:26] LABS: Alanine Aminotransferase 18 IU/L (<50); Albumin 4.1 g/dL (3.5-5.0); Albumin Globulin Ratio 1.4 (1.0-2.8); Alkaline Phosphatase 63 U/L (38-126); Aspartate Aminotransferase 29 IU/L (17-59); Bilirubin Total 0.8 mg/dL (0.2-1.3); Blood Urea Nitrogen 32 mg/dL (9-20); C-Reactive Protein Quant < 0.5 mg/dL (<1.0); Calcium 9.4 mg/dL (8.4-10.2); Carbon Dioxide 27 mmol/L (22-32); Chloride 108 mmol/L (98-107); Cholesterol 144 mg/dL (140-199); Estimated Glomerular Filt Rate > 60 mL/min (>60); Glucose 101 mg/dL (80-110); HDL Cholesterol 74 mg/dL (40-60); HEMOLYSIS < 15 (0-50); LDL Cholesterol Calculated 54 mg/dL (<100); Potassium 4.8 mmol/L (3.4-5.1); Sodium 139 mmol/L (137-145); Total Protein 7.1 g/dL (6.3-8.2); Triglycerides 79 mg/dL (35-150)
[2023-09-18 11:50] LABS: Prostate Specific Antigen Scrn 1.22 ng/mL (0.1-4.0)
[2023-09-18 12:27] LABS: Erythrocyte Sedimentation Rate 1 MM/HR (0-15)
== END ==
PROVIDERS: PCP Internal Medicine; Referring Provider Internal Medicine; Visit Provider Internal Medicine
DX: Z12.5 Encounter for screening for malignant neoplasm of prostate (principal); E78.5 Hyperlipidemia, unspecified; I10 Essential (primary) hypertension; I65.29 Occlusion and stenosis of unspecified carotid artery
CPT/HCPCS: 36415; 80053; 80061; 85025; 85651; 86140; G0103

== ENCOUNTER → 2024-03-18 07:20 | Outpatient (CLI) | payer MEDICARE, OTHER, SELFPAY ==
[2024-03-18 08:33] LABS: Alanine Aminotransferase 21 IU/L (<50); Albumin Globulin Ratio 1.8 (1.0-2.8); Alkaline Phosphatase 76 U/L (38-126); Aspartate Aminotransferase 33 IU/L (17-59); BUN Creatinine Ratio 25.5 (6-22); Bilirubin Total 0.5 mg/dL (0.2-1.3); Blood Urea Nitrogen 37 mg/dL (9-20); Calcium 9.9 mg/dL (8.4-10.2); Carbon Dioxide 30 mmol/L (22-32); Chloride 103 mmol/L (98-107); Cholesterol 163 mg/dL (140-199); Estimated Glomerular Filt Rate 50 mL/min (>60); Globulin 2.2 g/dL (1.7-4.1); Glucose 98 mg/dL (80-110); HDL Cholesterol 86 mg/dL (40-60); HEMOLYSIS < 15 (0-50); LDL Cholesterol Calculated 63 mg/dL (<100); Potassium 5.3 mmol/L (3.4-5.1); Sodium 137 mmol/L (137-145); Total Protein 6.2 g/dL (6.3-8.2); Triglycerides 70 mg/dL (35-150)
== END ==
PROVIDERS: PCP Internal Medicine; Referring Provider Internal Medicine; Visit Provider Internal Medicine
DX: I10 Essential (primary) hypertension (principal); E78.5 Hyperlipidemia, unspecified
CPT/HCPCS: 36415; 80053; 80061

== ENCOUNTER → 2024-09-16 09:07 | Outpatient (CLI) | payer MEDICARE, OTHER, SELFPAY ==
[2024-09-16 10:10] LABS: Alanine Aminotransferase 20 IU/L (<50); Albumin 3.6 g/dL (3.5-5.0); Albumin Globulin Ratio 1.3 (1.0-2.8); Alkaline Phosphatase 68 U/L (38-126); Blood Urea Nitrogen 22 mg/dL (9-20); Calcium 9.0 mg/dL (8.4-10.2); Carbon Dioxide 29 mmol/L (22-32); Chloride 103 mmol/L (98-107); Cholesterol 148 mg/dL (140-199); Estimated Glomerular Filt Rate 57 mL/min (>60); Globulin 2.8 g/dL (1.7-4.1); Glucose 101 mg/dL (70-99); HDL Cholesterol 74 mg/dL (40-60); HEMOLYSIS < 15 (0-50); Potassium 4.7 mmol/L (3.4-5.1); Sodium 136 mmol/L (137-145); Total Protein 6.4 g/dL (6.3-8.2); Triglycerides 75 mg/dL (35-150)
== END ==
PROVIDERS: PCP Internal Medicine; Referring Provider Internal Medicine; Visit Provider Internal Medicine
DX: I10 Essential (primary) hypertension (principal); E78.5 Hyperlipidemia, unspecified; M54.9 Dorsalgia, unspecified; G89.29 Other chronic pain
CPT/HCPCS: 36415; 80053; 80061

== ENCOUNTER → 2024-09-23 08:08 | Outpatient (CLI) | payer MEDICARE, OTHER, SELFPAY ==
--- NOTE | 2024-09-23 08:09 | DI.ECHO.S_ITS ---
[place] [facility] : : [address] : [place] : : [id number] : : Phone: [phone] Echocardiogram Report + + :Name: JESSICA NICOLAS Study Date: 09/23/2024 Height: 70 in : :Hospital ReadingLocation: Weight: 140 lb : : Gender: Male BSA: 1.8 m2 : :: 1950 Age: 74 yrs BP: 120/74 mmHg: :Reason For Study: ASCENDING AORTA DILATATION : :Ordering Physician: TAM, : :BRISEIDA Performed By: Dae Garza : :Referring: BRISEIDA TURCIOS : + + Interpretation Summary The patient was in sinus bradycardia with heart rates between 52-56 bpm during the exam. The left ventricle is normal in size. The left ventricular ejection fraction is normal. The ejection fraction is estimated to be 55-60%. No significant change in LVEF from the previous study The right ventricle is normal in size and function. There is mild to moderate mitral regurgitation. There is mild to moderate tricuspid regurgitation. Mild MR and mild TR. The right ventricular systolic pressure is estimated to be at least 31 mmHg based on an estimated right atrial pressure of 3 mm Hg. The ascending aorta is moderately enlarged. 4.5 cm in diameter. In April 15, 2022, it was reported to be 4.1 cm. Reviewed that echo, it was measured more proximally. August 26, 2017: 4.3 cm April 04, 2015: 4.4 cm February 05, 2013: 4.3 cm Procedure: A two-dimensional transthoracic echocardiogram with color flow and Doppler was performed. The study quality was technically good. Comparison is made with the echocardiogram of 04/15/2022. The patient was in sinus bradycardia with heart rates between 52-56 bpm during the exam. Left Ventricle: The left ventricle is normal in size. There is normal left ventricular wall thickness. There is no thrombus. The ejection fraction is estimated to be 55-60%. The left ventricular ejection fraction is normal. There are no focal wall motion abnormalities. Diastolic parameters suggest a relaxation abnormality of the left ventricle, consistent with probable normal filling pressures. Right Ventricle: The right ventricle is normal in size and function. Atria: The left atrial size is normal. There has been no significant change since the previous study. Right atrial size is normal. There is no Doppler evidence for an interatrial shunt. Mitral Valve: There is mild mitral annular calcification. Redundant elongated chordae are noted. There is mild to moderate mitral regurgitation. Aortic Valve: The aortic valve is trileaflet. The aortic valve opens well. There is no aortic valve stenosis. No aortic regurgitation is present. Tricuspid Valve: The tricuspid valve is normal. There is mild to moderate tricuspid regurgitation. The right ventricular systolic pressure is estimated to be at least 31 mmHg based on an estimated right atrial pressure of 3 mm Hg. Pulmonic Valve: The pulmonic valve is not well visualized. There is no pulmonic valvular regurgitation. Great Vessels: The aortic root is mildly dilated. The ascending aorta is moderately enlarged. The pulmonary artery is not well visualized, but is probably normal size. The IVC is of normal diameter and collapses greater than 50% with a sniff. This suggests a low right atrial pressure of 3 mm Hg. Pericardium/ Pleura There is no pericardial effusion. There is no pleural effusion. MMode/2D Measurements & Calculations LVIDd: 4.0 cm LVOT diam: 2.0 cm LVIDs: 2.8 cm Ao root diam: 3.9 cm FS: 29.8 % asc Aorta Diam: 4.5 cm EPSS: 0.62 cm IVSd: 0.93 cm LVPWd: 0.89 cm LV bo. diameter/BSA (cm/m^2): 2.2 LV sys. diameter/BSA (cm/m^2): 1.6 LA A2 area: 18.0 cm2 RA long axis: 5.5 cm LA A4 area: 17.4 cm2 RA area: 23.7 cm2 LA length (vol): 5.0 cm RA vol: 86.8 ml LA vol: 53.0 ml RA : 48.4 ml/m2 LA vol index: 29.5 ml/m2 IVC diam: 1.6 cm RVD1 (basal): 3.9 cm RVD2 (mid): 3.3 cm TAPSE: 3.0 cm Doppler Measurements & Calculations Ao V2 max: 111.3 cm/sec LVOT Max Chris: 115.3 cm/sec Ao V2 mean: 80.4 cm/sec LV V1 max P.3 mmHg Ao max P.0 mmHg LV V1 VTI: 27.6 cm Ao mean P.9 mmHg GELA(I,D): 3.5 cm2 Ao V2 VTI: 25.4 cm GELA(V,D): 3.4 cm2 sev ratio: 1.1 GELA indexed to BSA (cm^2/m^2): 2.0 MV E max chris: 42.3 cm/sec TR max chris: 258.5 cm/sec MV A max chris: 51.9 cm/sec TR max P.7 mmHg MV E/A: 0.82 PA V2 max: 87.5 cm/sec Med Peak E' Chris: 5.2 cm/sec PA V2 mean: 61.9 cm/sec E/E' med: 8.1 PA mean P.7 mmHg Lat Peak E' Chris: 5.6 cm/sec PA pr(Accel): 55.0 mmHg E/E' lat: 7.6 E/e' average: 7.8 MV dec time: 0.37 sec SV(LVOT): 89.7 ml Reading Physician:12:46 PM
== END ==
LOC: ECHO 08:09
PROVIDERS: PCP Internal Medicine; Referring Provider Internal Medicine Cardiovascular Disease; Visit Provider Internal Medicine Cardiovascular Disease
DX: I08.1 Rheumatic disorders of both mitral and tricuspid valves (principal); I77.810 Thoracic aortic ectasia; I77.89 Other specified disorders of arteries and arterioles
CPT/HCPCS: 93306

== ENCOUNTER → 2024-12-01 16:53 | Outpatient (CLI) | payer MEDICARE, OTHER, SELFPAY ==
[2024-12-01 17:33] LABS: Blood Urea Nitrogen 29 mg/dL (9-20); Calcium 9.1 mg/dL (8.4-10.2); Carbon Dioxide 26 mmol/L (22-32); Chloride 103 mmol/L (98-107); Estimated Glomerular Filt Rate 53 mL/min (>60); Glucose 82 mg/dL (70-99); HEMOLYSIS < 15 (0-50); Magnesium 2.1 mg/dL (1.6-2.3); Potassium 4.4 mmol/L (3.4-5.1); Sodium 136 mmol/L (137-145)
[2024-12-01 18:06] LABS: Thyroid Stimulating Hormone 1.53 uIU/mL (0.47-4.68)
== END ==
PROVIDERS: PCP Internal Medicine; Referring Provider Internal Medicine Cardiovascular Disease; Visit Provider Internal Medicine Cardiovascular Disease
DX: I10 Essential (primary) hypertension (principal)
CPT/HCPCS: 36415; 80048; 83735; 84443

== ENCOUNTER 2025-01-31 23:03 | Emergency (ER) | payer MEDICARE, OTHER, SELFPAY ==
[2025-01-31 23:12] VITALS: BP 171/81; PULSE 68; RESP 18; TEMP 36.8; O2SAT 97; BMI 20.2
--- NOTE | 2025-01-31 23:19 | ED.URI ---
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 Not currently taking antibiotics, no recent exposure to antibiotics. Denies chest pain. Also denies neck pain, facial pain, chest pain, abdominal pain. He does not use inhalers, none at home, none recent. No home oxygen use. Remote history of smoking in the 1970s. Related Data Home Medications ?Medication ?Instructions ?Recorded ?Confirmed evolocumab 140 mg/mL subcutaneous 140 mg SUBCUT Q2W 08/21/17 11/17/24 syringe (Repatha Syringe) aspirin 81 mg tablet,delayed 81 mg PO DAILY 09/19/22 11/17/24 release losartan 25 mg tablet 50 mg PO BEDTIME 09/17/24 11/17/24 Previous Rx's ?Medication ?Instructions ?Recorded mupirocin 2 % topical ointment 1 applic topical BID PRN infection 05/31/24 #22 grams ezetimibe 10 mg tablet (Zetia) 10 mg PO DAILY #90 tabs 08/16/24 duloxetine 60 mg capsule,delayed 60 mg PO DAILY #90 caps 10/11/24 release azithromycin 250 mg tablet See Rx Instructions PO .COMPLEX #6 01/31/25 tabs benzonatate 200 mg capsule 200 mg PO BID-TID PRN cough #20 02/01/25 caps Allergies Allergy/AdvReac Type Severity Reaction Status Date / Time Penicillins Allergy Unknown Rash Verified 01/31/25 23:11 oxycodone AdvReac Unknown INTOLERANCE Verified 01/31/25 23:11 TO PERCOCET Patient History Medical History (Updated 01/31/25 @ 23:56 by Yoan Bhatti MD) Chronic renal failure, stage 3a Erectile dysfunction Thoracic back pain Carotid artery obstruction Myofascial pain Thoracic spondylosis Chronic back pain Ascending aortic aneurysm Essential hypertension Coronary artery disease involving [place] coronary artery of [place] heart without angina pectoris Peripheral neuropathy Migraine, chronic, without aura (07/10/11) Insomnia (07/10/11) Hyperlipidemia, unspecified (07/10/11) Attention deficit disorder (ADD) in adult (07/10/11) Social History (System 04/22/23 @ 07:39 by Silvia Klein) household members: none Smoking Status: Former smoker Smoking Status: Former smoker Exam Narrative Exam Narrative: GENERAL: Well-developed patient, in mild distress. HEAD: Atraumatic. Normocephalic. EYES: Pupils equal round and reactive. Extraocular motions intact. No scleral icterus. No injection or drainage. ENT: Nose without bleeding, purulent drainage. Throat without erythema, tonsillar hypertrophy or exudate. Airway patent. NECK: Trachea midline. Non tender CARDIOVASCULAR: Regular rate and rhythm without murmurs, gallops, or rubs. RESPIRATORY: Clear to auscultation. Breath sounds equal bilaterally. No wheezes, rales, or rhonchi. GASTROINTESTINAL: Abdomen soft, non-tender, nondistended. EXTREMITIES: No edema or joint tenderness. BACK: Nontender without deformity or crepitance. No flank tenderness. NEURO: AOx3. Motor functions grossly nonfocal. SKIN: No rash or erythema of visible areas Initial Vital Signs Initial Vital Signs: Vital Signs Temperature 98.3 F 01/31/25 23:12 Pulse Rate 68 01/31/25 23:12 Respiratory Rate 18 01/31/25 23:12 Blood Pressure 171/81 H 01/31/25 23:12 Pulse Oximetry 97 01/31/25 23:12 Oxygen Delivery Method Room Air 01/31/25 23:12 Course Orders Ordered: ED Orders 01/31/25 23:27 Covid-19 + FLU A/B + RSV - PCR Stat 01/31/25 23:36 XR chest 2V Stat Discontinued Medications Albuterol (Albuterol Hfa Prepack) 1 box MISC DIRECTED ONE Stop: 01/31/25 23:51 Last Admin: 02/01/25 00:03 Dose: 1 box Documented By: TAMEKA Azithromycin (Azithromycin 250 Mg Tablet) 500 mg PO NOW ONE Stop: 01/31/25 23:56 Last Admin: 02/01/25 00:03 Dose: 500 mg Documented By: TAMEKA Vital Signs Vital signs: Vital Signs - 8 hr 01/31/25 23:12 02/01/25 00:00 Temperature 98.3 F Pulse Rate 68 71 Respiratory Rate 18 20 Blood Pressure 171/81 H 138/75 Pulse Oximetry 97 98 Oxygen Delivery Method Room Air Room Air MDM - URI/Sore Throat Lab Data Attestation: I reviewed the patient's lab results. Lab results narrative: COVID influenza RSV negative. Labs: Lab Results 01/31/25 Range/Units 23:27 SARS-CoV-2 (PCR) Negative (Negative) Influenza A (RT-PCR) Flu a negative (NEGATIVE) Influenza B (RT-PCR) Flu b negative (NEGATIVE) RSV (PCR) Negative (Negative) Imaging Data Chest x-ray: Radiologist's Impression: [address] [address] XRay Report Signed Patient: Meet Corral MR#: [id number] : 1950 Acct:[id number] Age/Sex: 75 / M Date of Service: 01/31/25 Loc: ED Accession Number: [id number] Procedure: XR chest 2V Ordering Provider: Yoan Bhatti MD PROCEDURE: XR CHEST 2V INDICATIONS: cough, dyspnea TECHNIQUE: 2 views of the chest were acquired. COMPARISON: [facility], , XR CHEST 2V, 04/03/2023, 8:06. FINDINGS: Surgical changes and devices: None. Lungs and pleura: Lungs are clear. No pleural effusions or pneumothorax. Mediastinum: Mediastinal contours are normal. Heart size is normal. Bones and chest wall: No suspicious bony abnormalities. Soft tissues appear unremarkable. IMPRESSION: No acute pulmonary process. Dictated by: Li Chopra M.D. on 02/01/2025 at 0:05 Approved by: Li Chopra M.D. on 02/01/2025 at 0:05 [facility] Narrative Medical decision making narrative: 75-year-old male with no known chronic lung disease, 4 weeks' duration of cough, recent days subjective fever, still coughing. No current/recent antibiotics. Afebrile, sirs screen negative. Lungs clear. COVID/influenza swab sent, chest x-ray requested. Trial of inhaler albuterol/spacer 2 puffs 4 times daily for a week and then as needed, to help with cough control symptoms. Albuterol and spacer dispensed, with RT teaching. We discussed possibility of atypical pneumonia, trial of macrolide antibiotics, he has taken Z-Lee in the past and we would like a course of azithromycin antibiotic treatment. First dose oral azithromycin given. Prescription sent for further doses azithromycin to his preferred pharmacy. Inhaler/spacer dispensed above. Tessalon Perles to use if needed for cough control symptoms, prescription also sent to his requested pharmacy. Discharged home, return precautions discussed. Discharge Plan Departure Patient Disposition: Home Clinical Impression: Atypical pneumonia Activity Restrictions/Additional Instructions: Persistent cough now for 4 weeks, dry, no fever on triage but subjective fevers at home recent days. No recent course of antibiotics, no chronic lung disease, remote smoking but none for many years. Lungs clear on examination, normal oxygenation on room air. Chest x-ray without pneumonia changes. Swab for COVID and influenza and RSV virus is negative. Consider atypical pneumonia. Course of azithromycin macrolide antibiotic, 1 tablet daily for 5 day course. Consider inhaler with spacer to help control cough symptoms, albuterol inhaler with AeroChamber, 2 puffs 4 times daily for this next week and then as needed. Consider benzonatate/Tessalon Perles to help control cough symptoms, prescription sent to your pharmacy if he would like to try this as well. Consider recheck with your regular doctor if not improved with course of antibiotic treatment and measures above. Return to this/nearest emergency department for any change worsening symptoms or any concerns prior. Prescriptions: New azithromycin 250 mg tablet See Rx Instructions PO .COMPLEX Qty: 6 0RF Rx Instructions: For 250 mg dose pack: take 500 mg today (day 1), then 250 mg for 4 days (days 2-5) benzonatate 200 mg capsule 200 mg PO BID-TID PRN (Reason: cough) Qty: 20 0RF No Action mupirocin 2 % ointment 1 applic topical BID PRN (Reason: infection) Qty: 22 3RF ezetimibe [Zetia] 10 mg tablet 10 mg PO DAILY Qty: 90 3RF duloxetine 60 mg capsule,delayed release(DR/EC) 60 mg PO DAILY Qty: 90 3RF losartan 25 mg tablet 50 mg PO BEDTIME aspirin 81 mg tablet,delayed release (DR/EC) 81 mg PO DAILY evolocumab [Repatha Syringe] 140 mg/mL Syringe 140 mg SUB-Q Q2W Referrals: Husam Braun MD [Primary Care Provider, Internal Medicine] Stand Alone Forms: Patient Portal/API
--- NOTE | 2025-01-31 23:36 | DI.RAD.S_ITS ---
PROCEDURE: XR CHEST 2V INDICATIONS: cough, dyspnea TECHNIQUE: 2 views of the chest were acquired. COMPARISON: [facility], CR, XR CHEST 2V, 04/03/2023, 8:06. FINDINGS: Surgical changes and devices: None. Lungs and pleura: Lungs are clear. No pleural effusions or pneumothorax. Mediastinum: Mediastinal contours are normal. Heart size is normal. Bones and chest wall: No suspicious bony abnormalities. Soft tissues appear unremarkable. IMPRESSION: No acute pulmonary process. Dictated by: Li Chopra M.D. on 02/01/2025 at 0:05 Approved by: Li Chopra M.D. on 02/01/2025 at 0:05
[2025-02-01] VITALS: BP 138/75; PULSE 71; RESP 20; O2SAT 98
[2025-02-01] MEDS: AZITHROMYCIN 250 MG TABLET 500 MG PO (00:03)
[2025-02-01] MEDS: ALBUTEROL HFA PREPACK 1 BOX MISC (00:03)
[2025-02-01 00:14] LABS: Influenza A - CEPHEID Flu A NEGATIVE (NEGATIVE); Influenza B - CEPHEID Flu B NEGATIVE (NEGATIVE)
[2025-02-01 00:16] LABS: COVID-19 CEPHEID 4-PLEX PCR Negative (Negative)
== END 2025-02-01 00:47 | disposition home or self-care (01) ==
PROVIDERS: Emergency Provider Emergency Medicine; PCP Internal Medicine
DX: J18.9 Pneumonia, unspecified organism (principal); Z87.891 Personal history of nicotine dependence
CPT/HCPCS: 71046; 87637; 99283